=== PATIENT | male | born 1960 | race Two or more races ===

== ENCOUNTER 2020-12-08 11:56 | Inpatient (IN) | payer OTHER ==
[2020-12-08 12:47] VITALS: BMI 21.9
[2020-12-08] MEDS ORDERED: LORazepam 2 MG TABLET ONE (13:36)
[2020-12-08] MEDS ORDERED: LORazepam 1 MG TABLET PO ONE (13:45)
[2020-12-08] MEDS ORDERED: ACETAMINOPHEN 650 MG PO PRN (15:12)
[2020-12-08] MEDS ORDERED: MAG HYDROX/AL HYDROX/SIMETH 30 ML UNIT-DOSE CUP PO PRN (15:13)
[2020-12-08] MEDS ORDERED: NICOTINE POLACRILEX 2 MG GUM BUC PRN (15:13)
[2020-12-08] MEDS ORDERED: BISMUTH SUBSALICYLATE 262 MG/15 ML BTL PO PRN (15:13)
[2020-12-08] MEDS ORDERED: IBUPROFEN 400 MG TABLET (FP) PO PRN (15:13)
[2020-12-08] MEDS ORDERED: ACETAMINOPHEN 325 MG TABLET (FP) PO PRN ×2 (15:13)
[2020-12-08] MEDS ORDERED: diazePAM 5 MG TABLET PO PRN (15:13)
[2020-12-08] MEDS ORDERED: ONDANSETRON *ODT* 4 MG TABLET SL PRN (15:13)
[2020-12-08] MEDS ORDERED: MAGNESIUM CITRATE 300 ML BOTTLE PO PRN (15:13)
[2020-12-08] MEDS ORDERED: MENTHOL/PHENOL 1 EACH UD MM PRN (15:13)
[2020-12-08] MEDS ORDERED: MAGNESIUM HYDROX 2400MG/30ML ORAL SUSPENSION 30 ML CUP PO PRN (15:13)
[2020-12-08] MEDS ORDERED: METHOCARBAMOL 500 MG TABLET PO PRN (15:13)
[2020-12-08] MEDS: hydrOXYzine PAMOATE 25 MG CAPSULE (FP) PO SCH ×2 (17:21→22:18)
[2020-12-08] MEDS: diazePAM 5 MG TABLET PO SCH ×2 (17:21→22:18)
[2020-12-08] MEDS: NICOTINE 14 MG/24 HOURS TOPICAL PATCH TD SCH (17:21)
[2020-12-08] MEDS: PRENATAL VITAMINS W/ FOLIC ACID TABLET (FP) PO SCH (17:22)
[2020-12-08 18:27] LABS: HIV INTERPRETATION NEGATIVE (NEGATIVE)
[2020-12-08] MEDS ORDERED: MELATONIN 5 MG TABLETS PO SCH (22:00)
[2020-12-08] MEDS: THIAMINE HCL 100 MG TABLET (FP) PO SCH (22:18)
[2020-12-09] MEDS: hydrOXYzine PAMOATE 25 MG CAPSULE (FP) PO SCH ×5 (05:38→22:13)
[2020-12-09] MEDS: diazePAM 5 MG TABLET PO SCH ×4 (05:40→22:13)
[2020-12-09 10:32] LABS: ALBUMIN 3.9 g/dl (3.4-5.0)
[2020-12-09] MEDS: PRENATAL VITAMINS W/ FOLIC ACID TABLET (FP) PO SCH (10:32)
[2020-12-09] MEDS: NICOTINE 14 MG/24 HOURS TOPICAL PATCH TD SCH (10:32)
[2020-12-09 10:35] LABS: BILIRUBIN,TOTAL 0.9 mg/dL (0.2-1); HEMATOCRIT 42.4 % (35.4-49); HEMOGLOBIN 14.1 GM/dL (11.7-16.9); MCH 31.1 pg (25.7-33.7); MCHC 33.4 g/dl (32.0-35.9); MEAN CELL VOLUME 93.1 fl (80-96); RBC 4.55 M/mm3 (4.00-5.60); RDW 14.6 % (11.9-15.9); TOT PROT 8.4 g/dl (6.4-8.2); WHITE BLOOD COUNT 5.2 K/mm3 (4.0-10.0)
[2020-12-09 10:36] LABS: CREATININE 0.8 mg/dL (0.55-1.3)
[2020-12-09 12:06] LABS: MEAN PLT VOLUME 11.1 fl (7.5-11.1); PLATELET COUNT 80 10^3/uL (134-434)
[2020-12-09] MEDS: THIAMINE HCL 100 MG TABLET (FP) PO SCH (22:13)
[2020-12-09] MEDS: OLANZapine 10 MG TABLET PO SCH (22:13)
[2020-12-09] MEDS: levETIRAcetam 500 MG TABLET (FP) PO SCH (22:13)
[2020-12-10] MEDS: diazePAM 5 MG TABLET PO SCH ×3 (06:07→22:17)
[2020-12-10] MEDS: hydrOXYzine PAMOATE 25 MG CAPSULE (FP) PO SCH ×5 (06:07→22:17)
[2020-12-10] MEDS: NICOTINE 14 MG/24 HOURS TOPICAL PATCH TD SCH (10:31)
[2020-12-10] MEDS: PRENATAL VITAMINS W/ FOLIC ACID TABLET (FP) PO SCH (10:32)
[2020-12-10] MEDS: levETIRAcetam 500 MG TABLET (FP) PO SCH (22:17)
[2020-12-10] MEDS: THIAMINE HCL 100 MG TABLET (FP) PO SCH (22:17)
[2020-12-10] MEDS: OLANZapine 10 MG TABLET PO SCH (22:17)
[2020-12-11] MEDS: hydrOXYzine PAMOATE 25 MG CAPSULE (FP) PO SCH ×5 (05:43→23:14)
[2020-12-11] MEDS: diazePAM 5 MG TABLET PO SCH ×2 (05:43→18:32)
[2020-12-11] MEDS: NICOTINE 14 MG/24 HOURS TOPICAL PATCH TD SCH (11:27)
[2020-12-11] MEDS: PRENATAL VITAMINS W/ FOLIC ACID TABLET (FP) PO SCH (11:28)
[2020-12-11] MEDS: THIAMINE HCL 100 MG TABLET (FP) PO SCH (23:14)
[2020-12-11] MEDS: levETIRAcetam 500 MG TABLET (FP) PO SCH (23:14)
[2020-12-12] MEDS ORDERED: diazePAM 5 MG TABLET PO ONE (06:00)
[2020-12-12] MEDS: hydrOXYzine PAMOATE 25 MG CAPSULE (FP) PO SCH ×5 (06:19→23:23)
[2020-12-12] MEDS: PRENATAL VITAMINS W/ FOLIC ACID TABLET (FP) PO SCH (11:39)
[2020-12-12] MEDS: NICOTINE 14 MG/24 HOURS TOPICAL PATCH TD SCH (11:39)
[2020-12-12] MEDS: LACTULOSE 20 GM/30 ML UDC (FOR ORAL USE ONLY) PO SCH ×2 (14:18→23:27)
[2020-12-12] MEDS: THIAMINE HCL 100 MG TABLET (FP) PO SCH (23:23)
[2020-12-12] MEDS: OLANZapine 10 MG TABLET PO SCH (23:23)
[2020-12-12] MEDS: levETIRAcetam 500 MG TABLET (FP) PO SCH (23:23)
[2020-12-13] MEDS: LACTULOSE 20 GM/30 ML UDC (FOR ORAL USE ONLY) PO SCH ×3 (06:12→23:04)
[2020-12-13] MEDS: hydrOXYzine PAMOATE 25 MG CAPSULE (FP) PO SCH ×5 (06:12→23:05)
[2020-12-13] MEDS: PRENATAL VITAMINS W/ FOLIC ACID TABLET (FP) PO SCH (10:41)
[2020-12-13] MEDS: NICOTINE 14 MG/24 HOURS TOPICAL PATCH TD SCH (10:41)
[2020-12-13] MEDS: levETIRAcetam 500 MG TABLET (FP) PO SCH (23:04)
[2020-12-13] MEDS: OLANZapine 10 MG TABLET PO SCH (23:04)
[2020-12-13] MEDS: THIAMINE HCL 100 MG TABLET (FP) PO SCH (23:05)
[2020-12-14] MEDS: LACTULOSE 20 GM/30 ML UDC (FOR ORAL USE ONLY) PO SCH (06:42)
[2020-12-14] MEDS: hydrOXYzine PAMOATE 25 MG CAPSULE (FP) PO SCH ×2 (06:42→10:17)
[2020-12-14 09:40] VITALS: BP 117/72; PULSE 103; TEMP 97.8
[2020-12-14] MEDS: PRENATAL VITAMINS W/ FOLIC ACID TABLET (FP) PO SCH (10:17)
[2020-12-14] MEDS: NICOTINE 14 MG/24 HOURS TOPICAL PATCH TD SCH (10:18)
[2020-12-14] MEDS ORDERED: COVID-19 VAC,AD26(JANSSEN)/PF 0.5 ML IM ONE (11:00)
[2020-12-14] MEDS ORDERED: LACTULOSE 20 GM/30 ML UDC (FOR ORAL USE ONLY) PO SCH (14:00)
== END 2020-12-14 11:50 | disposition home or self-care (01) | DRG 775 ==
LOC: YASAS 11:56 → Y3N 14:21
PROVIDERS: ADMIT Allergy & Immunology; ATTEND Allergy & Immunology
PROC: HZ2ZZZZ Detoxification Services for Substance Abuse Treatment (ICD-10-PCS; principal; 2020-12-08)
DX: F10.230 Alcohol dependence with withdrawal, uncomplicated (principal); F12.20 Cannabis dependence, uncomplicated; F17.210 Nicotine dependence, cigarettes, uncomplicated; F20.9 Schizophrenia, unspecified; F34.1 Dysthymic disorder; G40.909 Epilepsy, unspecified, not intractable, without status epilepticus; G47.00 Insomnia, unspecified; K74.60 Unspecified cirrhosis of liver; R41.0 Disorientation, unspecified; R74.01 Elevation of levels of liver transaminase levels; R79.89 Other specified abnormal findings of blood chemistry; R63.4 Abnormal weight loss; Z68.21 Body mass index [BMI] 21.0-21.9, adult; Z99.89 Dependence on other enabling machines and devices; S50.312A Abrasion of left elbow, initial encounter; S80.812A Abrasion, left lower leg, initial encounter; W19.XXXA Unspecified fall, initial encounter; Y93.9 Activity, unspecified; Y92.239 Unspecified place in hospital as the place of occurrence of the external cause
CPT/HCPCS: 0031A; 36415; 80053; 80177; 82140; 82962; 84450; 85027; 86780; 86803; 87389; 91303; 93005; 93010; C9803; U0003; U0005

== ENCOUNTER 2020-12-11 09:39 | Emergency (ER) | payer OTHER ==
[2020-12-11 10:02] VITALS: TEMP 98.4; BMI 21.9
[2020-12-11] MEDS ORDERED: chlordiazePOXIDE HCL 25 MG CAPSULE PO ONE (11:02)
[2020-12-11 11:13] LABS: COCAINE, UR NEGATIVE (NEGATIVE); URINE AMPHETAMINES NEGATIVE (NEGATIVE); URINE BARBITURATES NEGATIVE (NEGATIVE)
[2020-12-11 11:14] LABS: METHADONE, UR NEGATIVE (NEGATIVE); OPIATES, URI NEGATIVE (NEGATIVE)
[2020-12-11 11:19] LABS: URINE APPEARANCE CLEAR; URINE BILIRUBIN SMALL (NEGATIVE); URINE COLOR DK YELLOW; URINE GLUCOSE (UA) NEGATIVE (NEGATIVE); URINE KETONE TRACE (NEGATIVE)
[2020-12-11 11:20] LABS: URINE LEUK ESTERASE TRACE (NEGATIVE); URINE NITRITE NEGATIVE (NEGATIVE); URINE PROTEIN NEGATIVE (NEGATIVE)
[2020-12-11 11:22] LABS: PHENCYCLIDINE,URINE NEGATIVE (NEGATIVE); URINE BENZODIAZEPINES POSITIVE (NEGATIVE)
[2020-12-11] MEDS ORDERED: chlordiazePOXIDE HCL 10 MG CAPSULE ONE (11:24)
[2020-12-11 11:35] LABS: BASO % 0.6 % (0-2.0); HEMATOCRIT 43.9 % (35.4-49); HEMOGLOBIN 14.5 GM/dL (11.7-16.9); LYMPH % 20.6 % (8-40); MCH 30.4 pg (25.7-33.7); MCHC 33.1 g/dl (32.0-35.9); MEAN PLT VOLUME 8.8 fl (7.5-11.1); MONO % 11.8 % (3.8-10.2); PLATELET COUNT 96 10^3/uL (134-434); RBC 4.77 M/mm3 (4.00-5.60); RDW 14.3 % (11.9-15.9); WHITE BLOOD COUNT 4.8 K/mm3 (4.0-10.0)
[2020-12-11 11:45] LABS: CHLORIDE 109 mmol/L (98-107); INR 1.24 (0.83-1.09); PROTHROMBIN TIME (PATIENT) 15.1 SEC (9.7-13.0); SODIUM 143 mmol/L (136-145)
[2020-12-11 11:46] LABS: EPI CELLS FEW /uL (0-25.1); URINE BACTERIA FEW /uL (0-1359)
[2020-12-11 11:48] LABS: ACTIVATED PTT 35.2 SECONDS (25.2-36.5); GLUCOSE,RANDOM 104 mg/dL (74-106)
[2020-12-11 11:49] LABS: ALBUMIN 3.9 g/dl (3.4-5.0); ANION GAP 6 MMOL/L (8-16); BLOOD UREA NITROGEN 9.7 mg/dL (7-18); CO2 28 mmol/L (21-32); LIPASE 167 U/L (73-393)
[2020-12-11 11:52] LABS: CREATININE 0.8 mg/dL (0.55-1.3); SGOT/AST 172 U/L (15-37); SGPT/ALT 167 U/L (13-61)
[2020-12-11 11:53] LABS: BILIRUBIN,TOTAL 1.1 mg/dL (0.2-1); TOT PROT 8.6 g/dl (6.4-8.2)
[2020-12-11 11:54] LABS: ALK PHOS 86 U/L (45-117)
[2020-12-11 15:41] VITALS: BP 138/92; PULSE 97
== END 2020-12-11 15:41 | disposition home or self-care (01) ==
LOC: JER 09:39
DX: R31.9 Hematuria, unspecified (principal)
CPT/HCPCS: 36415; 70450-TC; 71045-TC-FY; 72125-TC; 72128-TC; 72170-TC-FY; 74177-TC; 80053; 80307; 81003; 82140; 82550; 83690; 84484; 85025; 85610; 85730; 87086; 93005; 93010; 99284-25; Q9967